=== PATIENT | male | born 1950 | race Caucasian/White ===

== ENCOUNTER → 2019-01-06 | Outpatient (CLI) | payer OTHER ==
[2019-01-08 00:06] LABS: PSA % FREE 13.1 % (.); PSA FREE 0.84 ng/mL; PSA TOTAL 6.4 ng/mL (0.0-4.0)
== END ==
LOC: M SMT 09:54
PROVIDERS: ATTEND Nurse Practitioner Family
DX: R97.20 Elevated prostate specific antigen [PSA] (principal)

== ENCOUNTER → 2019-03-17 | Outpatient (CLI) | payer SELFPAY ==
[~2019-03-17] MED LIST: PROHANCE 279.3MG/ML 15ML VIAL (A9576) As Ordered ONE; PROHANCE 279.3MG/ML 5ML VIAL (A9576) As Ordered ONE
[2019-03-17 11:42] LABS: BLOOD UREA NITROGEN 16 MG/DL (7-18); CARBON DIOXIDE LEVEL 25 MEQ/L (21-32); CHLORIDE LEVEL 106 MEQ/L (98-107); CREATININE FOR GFR 1.06 MG/DL (0.70-1.30); GLOMERULAR FILTRATION RATE > 60.0 (>49); GLUCOSE, FASTING 86 MG/DL (70-100); SODIUM LEVEL 137 MEQ/L (136-145)
--- NOTE | 2019-03-17 13:54 | REP ---
MULTI PARAMETRIC PROSTATE MRI WITHOUT AND WITH IV GADOLINIUM: HISTORY: Elevated PSA. COMPARISONS: Comparison is made with MRI of the prostate from [facility] dated February 23, 2019. No other prostate imaging. TECHNIQUE: Using a phased array surface coil, small field of view imaging was acquired using T2-weighted scans in the axial, coronal, and sagittal imaging planes. Small field of view diffusion-weighted sequences are acquired. Small field of view axial T1-weighted scans are acquired dynamically after the intravenous administration of 20 mL of ProHance. PROSTATE MRI FINDINGS: Cortical and medullary bone signal intensity are normal in the visualized bony pelvis. There is no evidence to suggest skeletal metastatic disease. 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 Some degenerative disc and facet changes are seen in the lumbar spine. There is no evidence of pelvic lymphadenopathy. Seminal vesicles are unremarkable and symmetric. No evidence of extra prostatic disease is seen. There is nodular hypertrophy of the central gland. There are three areas identified on T2- and postcontrast T1-weighted scans which are outlined and measured for submission to the [facility] system in consideration of MR/ultrasound-guided needle biopsy. Lesion #1 is in the right base posterior transition zone with a calculated volume of 1.49 mL and dimensions of 2.1 x 1.9 x 0.7 cm. It is characterized by a discrete homogeneous low signal intensity nodular focus on T2-weighted scans, no reduction in ADC, and a type 3 enhancement curve. Clinically significant cancer is felt to be equivocal. Lesion #2 is in the left base posterior transition zone and the left mid posterior transition zone. It is calculated volume is 0.78 mL. Its dimensions are 1.5 x 0.7 x 1.0 cm. It is discrete low T2 signal focus without reduction in ADC and a with a type 2 enhancement curve. Clinically significant cancer is equivocal. Lesion #3 is in the left base medial peripheral zone and in the right base medial peripheral zone. This is a linear geographic area of lower T2 signal intensity in the peripheral zone. There is no observable reduction in ADC. Type 1 enhancement curve is seen. Clinically significant cancer is equivocal. This lesion estimated volume is 0.62 mL. Its dimensions are 1.8 x 0.5 x 1.0 cm. IMPRESSION: No extra prostatic disease is seen. There are three areas of interest identified and submitted for consideration of ultrasound/MR fusion guided needle biopsy. Electronically Signed by Didier Nunez MD 03/17/2019 03:51 P
== END ==
LOC: M RAD 10:21
PROVIDERS: ATTEND Nurse Practitioner Family
DX: R97.20 Elevated prostate specific antigen [PSA] (principal)
CPT/HCPCS: 36415; 80048; A9576

== ENCOUNTER → 2019-04-07 | Outpatient (CLI) | payer OTHER ==
--- NOTE | 2019-04-07 13:56 | REP ---
TRANSRECTAL PROSTATE ULTRASOUND GUIDANCE FOR PROSTATE BIOPSY: Transrectal ultrasound guidance was provided for Dr. Najera who performed MR fusion guided biopsy. 26 biopsy samples were obtained. Electronically Signed by Jose Bethea MD 04/07/2019 06:43 P
== END ==
LOC: M SMT PRO 10:25
PROVIDERS: ATTEND Urology
DX: R97.20 Elevated prostate specific antigen [PSA] (principal)
CPT/HCPCS: 55700; 76942; G0416

== ENCOUNTER → 2025-09-15 | Outpatient (CLI) | payer OTHER | LOC: M SOG 07:35 | PROVIDERS: ATTEND Physician Assistant | DX: M25.511 Pain in right shoulder (principal) ==